=== PATIENT | male | born 1990 | race African-American/Black ===

== ENCOUNTER 2024-05-29 23:47 | Emergency (ER) | payer OTHER ==
[2024-05-29 23:56] VITALS: BP 112/74; PULSE 68; RESP 18; TEMP 97.6; BMI 20.9
[2024-05-30] MEDS ORDERED: BACITRACIN ZINC 15 GM TUBE TOPICAL OINTMENT ONE (00:46)
[2024-05-30] MEDS ORDERED: ACETAMINOPHEN 325 MG TABLET (FP) ONE (00:46)
[2024-05-30] MEDS: ACETAMINOPHEN 500 MG TABLET (FP) PO ONE (00:54)
== END 2024-05-30 00:54 | disposition home or self-care (01) ==
LOC: JER 23:47
DX: S40.811A Abrasion of right upper arm, initial encounter (principal); W22.8XXA Striking against or struck by other objects, initial encounter; Y99.0 Civilian activity done for income or pay
CPT/HCPCS: 99283-25